=== PATIENT | female | born 2000 | race African-American/Black ===

== ENCOUNTER 2022-03-30 06:00 | Inpatient (IN) | payer BC, OTHER ==
[2022-03-31] MEDS ORDERED: hydrALAZINE 20 MG/ML VIAL SLOW IVP PRN (02:27)
[2022-03-31] MEDS ORDERED: Butorphanol Tartrate 1 MG/ML VIAL SLOW IVP PRN (02:27)
[2022-03-31] MEDS ORDERED: Ibuprofen 800 MG TAB PO PRN (02:27)
[2022-03-31] MEDS ORDERED: Diphenoxylate HCl/Atropine Tablet PO PRN ×2 (02:27)
[2022-03-31] MEDS ORDERED: Acetaminophen 500 MG TAB PO PRN (02:27)
[2022-03-31] MEDS ORDERED: Zolpidem Tartrate 5 MG TAB PO PRN (02:27)
[2022-03-31] MEDS ORDERED: Methylergonovine 0.2 MG/ML VIAL IM PRN (02:27)
[2022-03-31] MEDS ORDERED: Carboprost 250 MCG/ML AMP IM PRN (02:27)
[2022-03-31] MEDS ORDERED: Misoprostol 200 MCG TAB PR PRN (02:27)
[2022-03-31] MEDS ORDERED: Tranexamic Acid 1,000 MG in Sodium Chloride 0.9% 250 ML 250 ML IVPB PRN (02:27)
[2022-03-31] MEDS ORDERED: HYDROcodone/Acetaminophen 5/325 mg Tablet PO PRN (02:27)
[2022-03-31] MEDS ORDERED: Ondansetron PF 4 MG/2 ML Vial IVP PRN ×2 (02:27→22:46)
[2022-03-31] MEDS ORDERED: Lidocaine 1% (PF) 30 ML VIAL SC PRN (02:27)
[2022-03-31] MEDS ORDERED: Promethazine HCl 25 MG/ML VIAL IM PRN ×2 (02:27→22:46)
[2022-03-31] MEDS ORDERED: NS w/ Oxytocin 30 units 500 ML IV SCH ×2 (06:15→06:30)
[2022-03-31] MEDS: Lactated Ringer's 1,000 ML IV SCH ×3 (07:00→22:35)
[2022-03-31 07:01] VITALS: BMI 40.1
[2022-03-31 07:41] LABS: Mean Corpuscular HGB CONC 32.1 g/dL (32.0-36.0); Mean Corpuscular Hemoglobin 23.5 pg (27.0-33.0); Mean Corpuscular Volume 73.1 fl (81.6-98.3); Mean Platelet Volume 10.7 fl (7.4-10.4); Platelet Count 340 10x3/uL (150-450); RBC Distribution Width 14.1 % (11.5-14.5); Red Blood Cell (RBC) Count 3.83 10x6/uL (3.90-5.03); White Blood Cell (WBC) Count 10.4 10x3/uL (3.5-10.5)
[2022-03-31 08:14] LABS: HBSAg Index 0.17 S/CO (0-0.99); Hep B Surf Ag Non-Reactive S/CO (NonReactive)
[2022-03-31 08:15] LABS: Syphilis Antibody Nonreactive (Nonreactive); Syphilis Antibody Index 0.05 S/CO (<1.00 Non-Reactive)
[2022-03-31 08:34] LABS: SARS-CoV-2 NAA Rapid Test Not Detected (NotDetected)
[2022-03-31] MEDS: Misoprostol 100 MCG TAB VAG SCH ×6 (08:36→22:36)
[2022-03-31 16:25] LABS: HIV (1/2) Antibody/Antigen Non-Reactive (NonReactive); HIV 1/2 INDEX 0.12 S/CO (<1.00)
[2022-03-31] MEDS ORDERED: Fentanyl 2 mcg/Bup 0.1% Cadd 100 ML ONE (22:14)
[2022-03-31] MEDS ORDERED: diphenhydrAMINE 50 MG/ML VIAL IVP PRN (22:46)
[2022-03-31] MEDS ORDERED: Acetaminophen 325 MG TAB PO PRN (22:46)
[2022-03-31] MEDS ORDERED: Lactated Ringer's 500 ML IV PRN (22:46)
[2022-03-31] MEDS ORDERED: ePHEDrine Sulfate 50 MG/10 ML VIAL SLOW IVP PRN (22:46)
[2022-03-31] MEDS ORDERED: Naloxone HCl 0.4 mg/ml Vial IVP PRN ×2 (22:46)
[2022-03-31] MEDS ORDERED: Moisturizing Cream (Eucerin) 113 GM JAR TOP PRN (22:46)
[2022-03-31] MEDS ORDERED: Fentanyl 2 mcg/Bupivacaine 0.1% Cassette 100 ML EPIDURAL SCH (23:00)
[2022-03-31] MEDS ORDERED: Communication Order-Pharmacy FS SCH (23:00)
[2022-04-01] MEDS: Misoprostol 100 MCG TAB VAG SCH ×2 (05:09→18:03)
[2022-04-01] MEDS ORDERED: Fentanyl 2 mcg/Bup 0.1% Cadd 100 ML ONE (06:22)
[2022-04-01] MEDS: Lactated Ringer's 1,000 ML IV SCH ×2 (06:24→18:03)
[2022-04-01] MEDS ORDERED: Bupivacaine/Epinephrine 0.25% 30 ML VIAL ONE (14:00)
[2022-04-01] MEDS ORDERED: Boostrix 0.5 ML (Tdap) VIAL (>/=7 yrs of age) IM ONE (14:46)
[2022-04-01] MEDS ORDERED: diphenhydrAMINE 25 MG CAP PO PRN (14:46)
[2022-04-01] MEDS ORDERED: Lanolin Ointment 7 GM TUBE TOP PRN (14:46)
[2022-04-01] MEDS ORDERED: Ondansetron PF 4 MG/2 ML Vial IVP PRN (14:46)
[2022-04-01] MEDS ORDERED: hydrALAZINE 20 MG/ML VIAL SLOW IVP PRN (14:46)
[2022-04-01] MEDS ORDERED: Promethazine HCl 25 MG/ML VIAL IM PRN (14:46)
[2022-04-01] MEDS ORDERED: Measles/Mumps/Rubella 10 MCG/0.5 ML VIAL SC ONE (14:46)
[2022-04-01] MEDS ORDERED: Preparation H Ointment 28 GM TUBE PR PRN (14:46)
[2022-04-01] MEDS ORDERED: Bisacodyl 10 MG SUPP PR PRN (14:46)
[2022-04-01] MEDS ORDERED: Zolpidem Tartrate 5 MG TAB PO PRN (14:46)
[2022-04-01] MEDS ORDERED: Milk Of Magnesia 30 ML UDCUP PO PRN (14:46)
[2022-04-01] MEDS ORDERED: Misoprostol 200 MCG TAB VAG PRN (14:46)
[2022-04-01] MEDS ORDERED: NS w/ Oxytocin 30 units 500 ML IV SCH (14:46)
[2022-04-01] MEDS ORDERED: Benzocaine-Menthol 82.5 ML CAN TOP PRN (14:46)
[2022-04-01] MEDS ORDERED: Methylergonovine 0.2 MG/ML VIAL IM PRN (14:46)
[2022-04-01] MEDS ORDERED: Varicella virus, LIVE 0.5 ML VIAL SC ONE (14:46)
[2022-04-01] MEDS ORDERED: HYDROcodone/Acetaminophen 5/325 mg Tablet PO PRN ×2 (14:46)
[2022-04-01] MEDS ORDERED: Ibuprofen 800 MG TAB PO SCH (15:00)
[2022-04-01] MEDS ORDERED: Ferrous Sulfate 325 MG TAB PO SCH (15:00)
[2022-04-01] MEDS ORDERED: Prenatal Vitamin 1 TAB PO SCH (15:00)
[2022-04-01] MEDS ORDERED: Docusate 100 MG CAP PO SCH (15:00)
[2022-04-01] MEDS: Docusate 100 MG CAP PO SCH (21:03)
[2022-04-01] MEDS: Ibuprofen 800 MG TAB PO SCH (21:04)
[2022-04-02 04:06] LABS: Hemoglobin 7.8 g/dL (12.0-15.5); Mean Corpuscular Hemoglobin 23.4 pg (27.0-33.0); Mean Corpuscular Volume 73.1 fl (81.6-98.3); Mean Platelet Volume 11.1 fl (7.4-10.4); Platelet Count 287 10x3/uL (150-450); RBC Distribution Width 14.1 % (11.5-14.5); Red Blood Cell (RBC) Count 3.34 10x6/uL (3.90-5.03); White Blood Cell (WBC) Count 12.7 10x3/uL (3.5-10.5)
[2022-04-02] MEDS: Ibuprofen 800 MG TAB PO SCH ×3 (06:05→21:11)
[2022-04-02] MEDS: Prenatal Vitamin 1 TAB PO SCH (08:12)
[2022-04-02] MEDS: Ferrous Sulfate 325 MG TAB PO SCH ×2 (08:12→18:22)
[2022-04-02] MEDS: Docusate 100 MG CAP PO SCH ×2 (08:13→21:10)
[2022-04-03] MEDS: Ibuprofen 800 MG TAB PO SCH (05:15)
[2022-04-03] MEDS: Prenatal Vitamin 1 TAB PO SCH (08:06)
[2022-04-03] MEDS: Ferrous Sulfate 325 MG TAB PO SCH (08:06)
[2022-04-03] MEDS: Docusate 100 MG CAP PO SCH (08:06)
[2022-04-03 08:40] VITALS: BP 107/55; TEMP 98.5
== END 2022-04-03 10:50 | disposition home or self-care (01) | DRG 807 ==
LOC: CSHLD 03-31 06:06 → CSHPP 04-01 10:15
PROVIDERS: ADMIT Obstetrics & Gynecology; ATTEND Obstetrics & Gynecology
PROC: 10E0XZZ Delivery of Products of Conception, External Approach (ICD-10-PCS; principal; 2022-04-01)
DX: O70.0 First degree perineal laceration during delivery (principal); Z37.0 Single live birth; Z3A.40 40 weeks gestation of pregnancy; Z20.822 Contact with and (suspected) exposure to COVID-19
CPT/HCPCS: 36415; 51702; 85027; 86780; 86850; 86900; 86901; 87340; 87389; J2405; J7120; U0002